=== PATIENT | male | born 1985 | race Caucasian/White ===

== ENCOUNTER 2019-04-11 02:43 | Emergency (ER) | payer OTHER ==
[2019-04-11] MEDS ORDERED: Ibuprofen TAB* 400 MG PO ONE (04:21)
[2019-04-11] MEDS ORDERED: predniSONE TAB* 50 MG PO ONE (04:21)
[2019-04-11] MEDS ORDERED: predniSONE TAB* 20 MG ONE (04:32)
[2019-04-11] MEDS ORDERED: predniSONE TAB* 10 MG ONE (04:32)
[2019-04-11 05:02] LABS: Rapid Strep Molecular Negative (Negative)
[2019-04-11] MEDS ORDERED: Amoxicillin/Clavulanate TAB* 875 MG PO ONE (05:04)
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
[2019-04-11 05:36] VITALS: BP 141/73
== END 2019-04-11 05:34 | disposition home or self-care (01) ==
LOC: ED 02:43
DX: J02.9 Acute pharyngitis, unspecified (principal); F17.210 Nicotine dependence, cigarettes, uncomplicated
CPT/HCPCS: 87651; 99283; A9270-GY; J7512